=== PATIENT | female | born 1950 | race Two or more races ===

== ENCOUNTER 2019-12-15 12:45 | Inpatient (IN) | payer MEDICAID, OTHER ==
[~2019-12-15] VITALS: Ht 152.4 cm; Wt 49.0 kg
--- NOTE | 2019-12-15 13:11 | NUR ---
Fever with SOB, from SNF - staff called 911. PT NON VERBAL, EYES OPEN. PLACED ON LEARNING ENGINEER, ST. PT SEEN & EVAL'D BY DR. KUMAR. WILL CONT TO MONITOR.
[2019-12-15] MEDS ORDERED: HYDR100T27 GT (13:15)
[2019-12-15] MEDS ORDERED: GLYC2TAB21 GT (13:15)
[2019-12-15] MEDS ORDERED: AMIN30LI2 GT (13:15)
[2019-12-15] MEDS ORDERED: [UNRECOGNIZED DRUG - CODE] MC (13:15)
[2019-12-15] MEDS ORDERED: CARV6.252 GT (13:15)
[2019-12-15] MEDS ORDERED: CHLO473M3 PO (13:15)
[2019-12-15] MEDS ORDERED: ATOR40TA GT (13:15)
[2019-12-15] MEDS ORDERED: quercetin GT (13:15)
[2019-12-15] MEDS ORDERED: NA P133E RC (13:15)
[2019-12-15] MEDS ORDERED: DOCU-141 GT (13:15)
[2019-12-15] MEDS ORDERED: OMEP20TA5 GT (13:15)
[2019-12-15] MEDS ORDERED: LISI40TA4 GT (13:15)
[2019-12-15] MEDS ORDERED: DEXT15DR6 RIGHTEYE (13:15)
[2019-12-15] MEDS ORDERED: LEVE100S GT (13:15)
[2019-12-15] MEDS ORDERED: IBUP-1953 GT (13:15)
[2019-12-15] MEDS ORDERED: SACC250C GT (13:15)
[2019-12-15] MEDS ORDERED: ENOX40DI SQ (13:15)
[2019-12-15] MEDS ORDERED: MAGN24002 GT (13:15)
[2019-12-15] MEDS ORDERED: [UNRECOGNIZED DRUG - OTHER] GT (13:15)
[2019-12-15] MEDS ORDERED: JEVITY GT (13:15)
[2019-12-15] MEDS ORDERED: IPRA4AER IH (13:15)
[2019-12-15] MEDS ORDERED: MULT-594 GT (13:15)
[2019-12-15] MEDS ORDERED: CRAN3875 GT (13:16)
[2019-12-15] MEDS ORDERED: BISA10SU11 RC (13:16)
[2019-12-15] MEDS ORDERED: [UNRECOGNIZED DRUG - SUPPLY] (13:16)
[2019-12-15] MEDS ORDERED: ACET325T53 GT (13:16)
[2019-12-15] MEDS ORDERED: ACET-2605 GT (13:16)
[2019-12-15] MEDS ORDERED: ASCO-352 GT (13:17)
[2019-12-15 13:21] LABS: BASOPHILS # (AUTO) 0.1 /CMM (0.0-0.2); BASOPHILS % (AUTO) 0.7 % (0.0-2.0); EOSINOPHILS % (AUTO) 0.4 % (0.0-6.0); HEMATOCRIT 37 % (39-51); LYMPHOCYTES # (AUTO) 0.6 /CMM (0.8-4.8); LYMPHOCYTES % (AUTO) 3.7 % (20.0-44.0); MEAN CORPUSCULAR HGB CONC 33 g/dl (31.0-36.0); MEAN CORPUSCULAR VOLUME 85 fL (80-96); MONOCYTES # (AUTO) 0.2 /CMM (0.1-1.30); MONOCYTES % (AUTO) 1.2 % (2.0-12.0); NEUTROPHILS # (AUTO) 14.2 /CMM (1.8-8.9); PLATELET COUNT (AUTO) 339 /CMM (150-450); RED BLOOD CELL COUNT(AUTO) 4.28 MIL/uL (4.5-6.0); WHITE BLOOD COUNT (AUTO) 15.1 K/uL (4.3-11.0)
[2019-12-15] MEDS ORDERED: ACETAMINOPHEN 650 MG/SUPP.RECT RC ONE ×2 (13:22→13:30)
[2019-12-15 13:30] LABS: CALCIUM, SERUM 9.2 mg/dL (8.5-10.1); CREATININE 0.6 mg/dL (0.6-1.3); POTASSIUM 3.8 mmol/L (3.5-5.1)
[2019-12-15 13:36] LABS: BILIRUBIN,DIRECT 0.2 mg/dL (0.0-0.2); BILIRUBIN,TOTAL 0.5 mg/dL (0.2-1.0); TOTAL PROTEIN, SERUM 7.4 g/dL (6.4-8.2)
--- NOTE | 2019-12-15 14:00 | NUR ---
CALLED NURSING SUP FOR TELE BED.
[2019-12-15] MEDS ORDERED: PIPERACILLIN /TAZOBACTAM 3.375 G in IV D5W 50 ML IV ONE (14:30)
[2019-12-15] MEDS ORDERED: IV NS 0.9% 1,000 ML BAG IV ONE (14:30)
[2019-12-15 14:49] LABS: C-REACTIVE PROTEIN 7.2 mg/dL (0.0-0.9)
[2019-12-15] MEDS ORDERED: MAGNESIUM HYDROXIDE 30 ML UDC PO PRN (15:30)
[2019-12-15] MEDS ORDERED: MAG HYDROX/AL HYDROX/SIMETH 30 ML UDC PO PRN (15:30)
[2019-12-15] MEDS ORDERED: ONDANSETRON HCL/PF 4 MG/2 ML VIAL IVP PRN (15:30)
[2019-12-15] MEDS ORDERED: JEVITY 1.2 CAL 1,000 ML BOTTLE GT PRN (15:30)
[2019-12-15] MEDS ORDERED: Z GUARD REMEDY 2 OZ OINT TP PRN (15:30)
[2019-12-15] MEDS ORDERED: ZOLPIDEM TARTRATE 5 MG TABLET PO PRN (15:30)
[2019-12-15] MEDS ORDERED: BISACODYL SUPP (10 MG) 10 MG/SUPP.RECT SUPP.RECT RC PRN (15:30)
[2019-12-15] MEDS ORDERED: HYDROCODONE/APAP 5/325MG 1 EACH TABLET PO PRN (15:30)
[2019-12-15] MEDS ORDERED: ACETAMINOPHEN 325 MG TABLET PO PRN (15:30)
--- NOTE | 2019-12-15 15:30 | NUR ---
MEDICATED ORDERED, PT AUST[place] WELL. PT STABLE, NO RESP DISTRESS NOTED AT THIS TIME. WILL CONT TO MONITOR.
--- NOTE | 2019-12-15 16:11 | NUR ---
BED ASSIGNED: 109
[2019-12-15] MEDS ORDERED: FEE PK DOSING 1 MIN EA MC ONE (16:51)
[2019-12-15] MEDS ORDERED: CHLORHEXIDINE GLUCONATE 15 ML UDC MM SCH (17:00)
--- NOTE | 2019-12-15 17:28 | NUR ---
URINE SAMPLE COLLECTED VIA STRAIGHT CATHETER, URINE SAMPLE SENT TO LAB
--- NOTE | 2019-12-15 18:02 | NUR ---
HUNTER RN OPENING NOTES RECEIVED PT FROM ER REPORT WAS GIVEN BY MONA. ALERT AND ORIENTED X3. SPEAKS [place]. VS WNL.NO MEDS IN THE PIXEL OR CASSETE YET TALKED TO PHARMACY [facility]. WILL BRING IT. PT IS ON 4 L. OXYGEN . TRACH AND GT TUBE. NO CLARIFICATION OF HOW MANY ML/HR FOR GLUCERNA 1.2. BED IN LOWEST POSITIONM. CALL LIGHT WITHIN REACH. WILL ENDORSE TONIGHT SHIFT
[2019-12-15 18:18] LABS: BILIRUBIN,URINE Negative (NEGATIVE); BLOOD, URINE Trace-intact Ery/uL (NEGATIVE); KETONES,URINE Negative (NEGATIVE); LEUKOCYTE ESTERASE ,URINE Small (NEGATIVE); NITRITE, URINE Positive (NEGATIVE); PROTEIN,URINE 30 mg/dl (NEGATIVE); UGLUCOSE Negative (NEGATIVE); UROBILINOGEN,URINE 0.2 EU/dL (0.2)
[2019-12-15 18:19] LABS: APPEARANCE,URINE CLOUDY (CLEAR); COLOR,URINE YELLOW (YELLOW)
[2019-12-15 18:23] LABS: BACTERIA,URINE 2+ /HPF (None Seen); MUCUS,URINE Moderate /LPF (None Seen); SQUAMOUS EPITHELIAL CELL,UR Few /HPF (None Seen); WBC,URINE 21-50 /HPF (0-3)
--- NOTE | 2019-12-15 19:15 | NUR ---
HUNTER RN NOTES MEDS ARE STILL NOT IN THE PYXEL OR CASSETTE WAITING FOR PHARM TO BRING IT UP
[2019-12-15 19:45] VITALS: BP 127/84
[2019-12-15 20:00] VITALS: BP 132/81
--- NOTE | 2019-12-15 20:10 | NUR ---
RN NOTE PER MD, OKAY TO RESUME TUBE FEEDING FROM SNF. DIETARY CONSULT ORDERED.
[2019-12-15] MEDS: IV NS 0.9% 1,000 ML IV PRN (20:47)
--- NOTE | 2019-12-15 20:52 | NUR ---
RN NOTE SPOKE TO PHARMACY. OK TO GIVE OVERDUE 1700 MEDS AT THIS TIME.
[2019-12-15] MEDS: CHLORHEXIDINE GLUCONATE 15 ML UDC MM SCH (20:55)
[2019-12-15] MEDS: LEVETIRACETAM SOL (5 ML) 100 MG/ML UDC GT SCH (20:55)
[2019-12-15] MEDS: CARVEDILOL 6.25 MG TABLET GT SCH (20:56)
[2019-12-15] MEDS: PIPERACILLIN /TAZOBACTAM 4.5 G in IV D5W 50 ML IV SCH (20:57)
[2019-12-15] MEDS: JEVITY 1.2 CAL 1,000 ML BOTTLE GT PRN (21:10)
[2019-12-15] MEDS: VANCOMYCIN 1 GM in IV NS 0.9% 250 ML IV SCH (21:35)
--- NOTE | 2019-12-15 22:56 | NUR ---
RN NOTE SPOKE TO CHINTAN FROM [facility]. PER PHARMACIST, OKAY TO ADMINISTER MIDNIGHT DOSE OF ZOSYN SCHEDULED EVEN THOUGH 1ST DOSE WAS GIVEN LATE AT 2100.
[2019-12-16] VITALS (7 sets, daily range): BP systolic 109–147; BP diastolic 64–85
[2019-12-16] MEDS: PIPERACILLIN /TAZOBACTAM 4.5 G in IV D5W 50 ML IV SCH ×4 (00:21→17:27)
--- NOTE | 2019-12-16 06:28 | NUR ---
RN NOTE NO ACUTE CHANGES OBSERVED OVERNIGHT. PT CURRENTLY RUNNING TUBE FEEDING AT 50CC/HOUR AND TOLERATING WELL. WILL ENDORSE TO MORNING RN TO ADVANCE TUBE FEEDING RATE TOLERATED TO REACH GOAL OF 60CC/HOUR.
--- NOTE | 2019-12-16 08:00 | NUR ---
RN Opening Received patient in bed AO x 3, able to responds all stimuli. Does no c/o pain or discomfort, Respiratory even and unlabored with oxygen at 6LPM with T piece #7, O2sat 99%, no distress observed. Skin is warm to touch, kept clean/dry, intact IV site. Keep bed in locked with elevated head of bed for secure airway and aspiration precaution. Call light within reach, will continue to monitor.
[2019-12-16 08:07] LABS: BASOPHILS # (AUTO) 0.1 /CMM (0.0-0.2); BASOPHILS % (AUTO) 0.4 % (0.0-2.0); EOSINOPHILS % (AUTO) 1.4 % (0.0-6.0); HEMATOCRIT 30 % (33-45); HEMOGLOBIN 9.8 g/dL (11.5-14.8); LYMPHOCYTES # (AUTO) 1.1 /CMM (0.8-4.8); MEAN CORPUSCULAR HGB CONC 32 g/dl (31.0-36.0); MEAN CORPUSCULAR VOLUME 87 fL (82-100); MONOCYTES # (AUTO) 0.9 /CMM (0.1-1.30); MONOCYTES % (AUTO) 5.5 % (2.0-12.0); NEUTROPHILS # (AUTO) 13.8 /CMM (1.8-8.9); NEUTROPHILS % (AUTO) 85.7 % (43.0-81.0); PLATELET COUNT (AUTO) 260 /CMM (150-450); RED BLOOD CELL COUNT(AUTO) 3.48 MIL/uL (4.0-5.2); WHITE BLOOD COUNT (AUTO) 16.1 K/uL (4.3-11.0)
[2019-12-16] MEDS: LEVETIRACETAM SOL (5 ML) 100 MG/ML UDC GT SCH ×2 (08:41→17:26)
[2019-12-16] MEDS: DOCUSATE SODIUM LIQ 100 MG/10 ML UDC GT SCH (08:41)
[2019-12-16] MEDS: CHLORHEXIDINE GLUCONATE 15 ML UDC MM SCH ×2 (08:41→17:26)
[2019-12-16] MEDS: ASCORBIC ACID 500 MG TABLET GT SCH (08:42)
[2019-12-16] MEDS: LISINOPRIL (20MG) 20 MG TABLET GT SCH (08:42)
[2019-12-16] MEDS: ATORVASTATIN 40 MG TABLET GT SCH (08:42)
[2019-12-16] MEDS: CARVEDILOL 6.25 MG TABLET GT SCH ×2 (08:43→17:25)
[2019-12-16] MEDS: ENOXAPARIN SODIUM 40 MG/0.4 ML DISP.SYRIN SQ SCH (08:44)
[2019-12-16] MEDS: IV NS 0.9% 1,000 ML IV PRN (08:48)
[2019-12-16 09:02] LABS: CALCIUM, SERUM 8.5 mg/dL (8.5-10.1); CREATININE 0.6 mg/dL (0.6-1.3); MAGNESIUM 2.2 mg/dL (1.8-2.4); PHOSPHORUS 3.6 mg/dL (2.5-4.9); POTASSIUM 3.7 mmol/L (3.5-5.1)
[2019-12-16 10:44] LABS: THYROID STIMULATING HORMONE 0.505 uIU/mL (0.358-3.74)
[2019-12-16] MEDS: VANCOMYCIN 1 GM in IV NS 0.9% 250 ML IV SCH (11:28)
--- NOTE | 2019-12-16 18:30 | NUR ---
RN Closing note Patient in bed comfortably, does no appears pain or distress. Skin is warm to touch, kept clean/dry, intact IV site. Respiratory even and unlabored with oxygen at 6LPM with T piece, no distress observed. Keep bed in locked with elevated HOB for secure airway and aspiration precaution, call light within reach, will endorse manager night.
--- NOTE | 2019-12-16 19:45 | NUR ---
RN NOTE RECEIVED PT IN BED, APPEARS COMFORTABLE. AOX3, NO S/SX OF ACUTE DISTRESS AT THIS TIME. PATIENT'S BREATHING IS EVEN AND UNLABORED, NOTED TRACHEOSTOMY TUBE PORTAL#7 CONNECTED TO TPIECE AND OXYGEN INTACT, SATURATING 100% AT 6LPM. PATIENT ON TELE MONITOR READING SR, HR IS @85. NOTED IV SITE ON LEFT HAND G18, AND HILLARY MIDLINE G18, BOTH PATENT AND FLUSHING WELL, WITH NS RUNNING AT 75 ML/HR, NO S/S OF INFECTION OR INFILTRATION. NO SKIN ISSUES NOTED. SAFETY MEASURES HAVE BEEN PROVIDED AND IMPLEMENTED. PATIENT BED ALARM IS ON. HEAD OF BED ELEVATED. BED IS LOCKED, IN LOWEST POSITION AND SIDE RAILS UP. CALL LIGHT WITHIN REACH OF THE PATIENT. WILL CONTINUE TO MONITOR AND REASSESS FOR ANY CHANGES.
--- NOTE | 2019-12-16 20:10 | NUR ---
RN NOTE TELEPHONE CALL RECEIVED FROM YEMI HUMPHREY, PATIENT'S BROTHER, INQUIRING ON CURRENT PATIENT STATUS. PROVIDED HIM WITH OBJECTIVE INFORMATION PER CHART. ACKNWOLEDGED AND VERBALIZED UNDERSTANDING. HE SAID HE WILL CALL PERIODICALLY TO GET UPDATES REGARDING PATIENT.
--- NOTE | 2019-12-16 21:00 | NUR ---
RN NOTE NOTED MID LINE AT LUE PULLED OUT. PATIENT HAS ANOTHER IV LINE AT LEFT HAND, PATENT AND FLUSHING WELL WITH NS AT 75 ML/HR. ADVISED PATIENT TO BE CAREFUL WITH IV LINE DURING MOVEMENT. TIRE SERVICER MADE AWARE.
[2019-12-16] MEDS: ACETAMINOPHEN 650 MG/20.3 ML UDC GT PRN (21:37)
--- NOTE | 2019-12-16 21:37 | NUR ---
RN NOTE PATIENT C/O HEADACHE AT 08/07. GENTLE MASSAGE PROVIDED. PRN TYLENOL 650 MG GIVEN ORDERED. WILL CONTINUE TO MONITOR.
--- NOTE | 2019-12-16 22:26 | NUR ---
RN NOTE ENDORSED TO MALACHI BILLY FOR CONTINUATION OF CARE.
--- NOTE | 2019-12-16 22:44 | NUR ---
MASS SPECTROMETRY SPECIALIST: RECEIVED PATIENT Transferred of care, patient in bed, awake. T-Piece to O2 2L via NC, denies shortness of breath. HILLARY Midline dislodged per MARIAJOSE Mejia. Gtube at 60ml/hr, maintained upright posture. Maintained safety. Covid-19 resulted negative per MARIAJOSE Torres.
--- NOTE | 2019-12-16 23:02 | NUR ---
NAUMKEAG OPERATOR NOTES SPOKE TO EQUIPMENT INSPECTOR GISELE PANG COVID RESULT NEGATIVE ,DR HEALY ALSO MADE AWARE OF COVID RESULT NEGATIVE WITH ORDER TO TRANSFER PTS TO CLEAN UNIT.
--- NOTE | 2019-12-16 23:14 | NUR ---
CONE BAKER MACHINE NOTES SPOKE TO POLY PTS TO BE TRANSFER TO 312-1 D/T COVID NEGATIVE RESULT.
[2019-12-17] VITALS: BP 145/92
--- NOTE | 2019-12-17 00:18 | NUR ---
FINISHING TECHNICIAN: TRANSFERRED TO ROOM 312-1 Covid 19 resulted negative . Transferred patient to [facility] via bed with MARIAJOSE Wilkins. All personal belongings send with the patient. Report given to MARIAJOSE Alfaro.
--- NOTE | 2019-12-17 00:20 | NUR ---
RN NOTES: -AT 2330 RECEIVED REPORT FROM MALACHI/RN/HUNTER, PATIENT WILL BE TRANSFER TO [facility] ROOM [facility]. PATIENT IS ON T-PIECE WITH O2 AT 6L/MIN, A/OX3, ABLE TO VERBALIZED NEEDS, INCONTINENT BOTH BOWEL AND BLADDER, SKIN IS INTACT, ON PEG TUBE, WITH FEEDING OF JVT 1.2 AT 60 ML /HR X 12 HOURS, OFF AT 0900, DUE FOR ZOSYN AT 0000 AND VANCO AT 0500, IV SITE:LH G#22 WITH IVF OF NS AT 75ML/HR,FOR ST EVAL TANI. AND LABS IN THE MORNING, REMAINS AFEBRILE AND LATEST COVID TEST IS NEGATIVE. -AT 0020 PATIENT WAS TRANSFERRED, ACCOMPANIED BY 2 RN, ON CORRESPONDENCE CLERK, TELE PATIENT SINUS RHYTHM RATE-82,NO PAIN OR DISCOMFORT, NON LABORED BREATHING , ON T-PIECE WITH O2 AT 6L/MIN, SPO2-100%, HR-82, ORIENTED TO UNIT AND STAFF, SHE LOOK A BIT ANXIOUS ON THE NEW ENVIRONMENT BUT AFTER EVERYTHING WAS EXPLAINED TO HER SHE LOOKS MORE RLEAX AND SMILING BACK TO THE RN. Addendum: 12/17/19 at 0205 by MARQUES CORRAL RN ADDED NOTES: UPON TRANSFER NOTED WITH ON AND OFF COUGH.CALLED RT AND REQUEST FOR HUMIDIFIER FOR HER O2 INHALATION.SUCTION SET UP DONE.
[2019-12-17] MEDS: PIPERACILLIN /TAZOBACTAM 4.5 G in IV D5W 50 ML IV SCH ×4 (00:24→17:07)
[2019-12-17] MEDS: IV NS 0.9% 1,000 ML IV PRN ×2 (00:29→16:42)
--- NOTE | 2019-12-17 02:01 | NUR ---
RN NOTES: -NS CONSUMED AND STARTED WITH NEW BOTTLE AT 0029. -STILL AWAKE SHE IS ADJUSTING IN THE NEW SURROUNDING, PACIFY, HER BROTHER CALLED AND EXPLAINED TO HER HOW IS THE PATIENT, HER TUBING WAS REPOSITIONED BECAUSE SHE COMPLAINT OF PAIN ON THE THROAT AREA, AFTER REPOSITIONING SHE SAID SHE IS FINE, KEPT ON SEMI FOWLERS POSITION.
--- NOTE | 2019-12-17 02:51 | NUR ---
RN NOTES: PATIENT NOTED WITH ON AND OFF COUGH WITH WHITE PHLEGM, TALENT SOLUTIONS MANAGER NOTIFIED, WITH NEW ORDER:ROBITUSSIN 5ML Q 4H PRN FOR COUGH AND ALBUTEROL/ATROVENT HHN Q 4H PRN FOR COUGH, NOTED AND CARRIED OUT, RT NOTIFIED.
[2019-12-17] MEDS ORDERED: IPRATROPIUM NEB FS 0.5 MG/2.5 ML AMPUL.NEB NEB PRN (03:00)
[2019-12-17] MEDS ORDERED: ALBUTEROL FS 2.5 MG/0.5 ML VIAL.NEB NEB PRN (03:00)
[2019-12-17] MEDS ORDERED: GUAIFENESIN/CODEINE 10 ML UDC GT PRN (03:00)
[2019-12-17 03:55] VITALS: BP 129/78
[2019-12-17 04:00] VITALS: BP 129/78
[2019-12-17] MEDS: VANCOMYCIN 1 GM in IV NS 0.9% 250 ML IV SCH ×2 (04:43→22:26)
--- NOTE | 2019-12-17 06:35 | NUR ---
RN NOTES: AFTER SHE RECEIVED HAND HELD NEBULIZER SHE WAS ABLE TO REST AND SLEEP, KEPT ON SEMI FOWLERS POSITION FEEDING ONGOING OF JEVITY 1.2 AT 60ML/HRX 12 HOURS TO BE OFF AT 0900,NON LABORED BREATHING SPO2-98% HR-82 SINUS RHYTHM, NO BM, URINE 2X, LATEST BP-129/78, KEPT ON CLOSE WATCH.IVF CONTINUE NS AT 75 ML/HR, TO F/U BLOOD C/S, URINE C/S,MRSA SCREEN RESULT, FOR ST EVAL AND SWALLOW EVAL, FOR LAB TEST THIS MORNING.NO SIGN OF SOB OR RESPIRATORY DISTRESS.
--- NOTE | 2019-12-17 07:37 | NUR ---
MS/RN OPENING NOTES RECEIVED PATIENT AWAKE ON BED. ALERT AND ORIENTED X 2-3. PATIENT IN NO APPARENT RESPIRATORY DISTRESS NOTED. NO SIGN AND SYMPTOM PAIN AT THIS TIME. WILL CONTINUE TO MONITOR.
[2019-12-17 08:00] VITALS: BP 152/92
[2019-12-17] MEDS: LISINOPRIL (20MG) 20 MG TABLET GT SCH (08:35)
[2019-12-17] MEDS: ATORVASTATIN 40 MG TABLET GT SCH (08:35)
[2019-12-17] MEDS: LEVETIRACETAM SOL (5 ML) 100 MG/ML UDC GT SCH ×2 (08:35→16:33)
[2019-12-17] MEDS: CHLORHEXIDINE GLUCONATE 15 ML UDC MM SCH ×2 (08:35→16:33)
[2019-12-17] MEDS: DOCUSATE SODIUM LIQ 100 MG/10 ML UDC GT SCH (08:35)
[2019-12-17] MEDS: CARVEDILOL 6.25 MG TABLET GT SCH ×2 (08:36→16:33)
[2019-12-17] MEDS: ASCORBIC ACID 500 MG TABLET GT SCH (08:36)
[2019-12-17] MEDS: ENOXAPARIN SODIUM 40 MG/0.4 ML DISP.SYRIN SQ SCH (08:39)
[2019-12-17 09:47] LABS: BASOPHILS % (AUTO) 0.3 % (0.0-2.0); EOSINOPHILS % (AUTO) 1.4 % (0.0-6.0); HEMATOCRIT 30 % (33-45); HEMOGLOBIN 9.8 g/dL (11.5-14.8); LYMPHOCYTES # (AUTO) 1.3 /CMM (0.8-4.8); LYMPHOCYTES % (AUTO) 14.6 % (20.0-44.0); MEAN CORPUSCULAR HGB CONC 32 g/dl (31.0-36.0); MEAN CORPUSCULAR VOLUME 88 fL (82-100); MONOCYTES # (AUTO) 0.5 /CMM (0.1-1.30); MONOCYTES % (AUTO) 5.6 % (2.0-12.0); NEUTROPHILS # (AUTO) 6.9 /CMM (1.8-8.9); NEUTROPHILS % (AUTO) 78.1 % (43.0-81.0); PLATELET COUNT (AUTO) 309 /CMM (150-450); RED BLOOD CELL COUNT(AUTO) 3.47 MIL/uL (4.0-5.2); WHITE BLOOD COUNT (AUTO) 8.9 K/uL (4.3-11.0)
[2019-12-17 10:46] LABS: CALCIUM, SERUM 8.5 mg/dL (8.5-10.1); CREATININE 0.6 mg/dL (0.6-1.3); MAGNESIUM 2.1 mg/dL (1.8-2.4); PHOSPHORUS 2.7 mg/dL (2.5-4.9); POTASSIUM 3.2 mmol/L (3.5-5.1)
--- NOTE | 2019-12-17 12:13 | NUR ---
MS/RN NOTES DR. HERNÁNDEZ ORDER TO ASK LAB FOR URINE CULTURE RESULT CARLOS, PER ENGINE REPAIRER PRODUCTION NO ORDER FOR URINE CULTURE TODAY.
--- NOTE | 2019-12-17 12:36 | NUR ---
MS/RN NOTES PATIENT NOTED SIGN AND SYMPTOM OF PAIN, IRRITABILITY, GRIMACE FACE AND MOANING. NORCO 5/325MG 1TAB GIVEN VIA GT. WILL CONTINUE TO MONITOR.
[2019-12-17 16:00] VITALS: BP 126/76
--- NOTE | 2019-12-17 18:48 | NUR ---
MS/RN CLOSING NOTES PATIENT IS ON BED. ALERT AND ORIENTED X 2-3. PATIENT IN NO APPARENT RESPIRATORY DISTRESS NOTED. NO SIGN AND SYMPTOM OF PAIN NOTED. IV ACCESS AT LEFT UPPER ARM MIDLINE WITH IV FLUID OF NS 1 L AT 75 ML/HR ON AND INFUSING WELL. SEEN AND EXAMINED BY MD WITH ORDERS MADE AND CARRIED OUT. ALL DUE MEDICATION WAS GIVEN. KEEP PATIENT CLEAN, DRY AND COMFORTABLE THE WHOLE TIME. CHECKED AND TURNED PATIENT EVERY 2 HOURS. SAFETY PRECAUTION IN PLACED. BED IN LOWEST POSITION AND LOCKED. SIDE RAILS UP X2. CALL LIGHT WITHIN REACH. WILL ENDORSED TO MOBILE SALES ASSISTANT FOR WILMA.
--- NOTE | 2019-12-17 19:50 | NUR ---
MS RN OPENING NOTES PATIENT RECEIVED RESTING IN BED A/O X 2-3, ABLE TO MAKE NEEDS KNOWN. TOLERATING TRACH COLLAR WELL 8L OF O2 WITH BREATHING EVEN AND UNLABORED, NO SOB NOTED. NO SIGNS OF ACUTE DISTRESS. NO COMPLAINTS OF PAIN OR DISCOMFORT. HILLARY MIDLINE RUNNING NS @ 75 ML/HR. SAFETY PRECAUTIONS IN PLACE WITH BED IN LOWEST POSITION, CALL LIGHT WITHIN REACH, BREAKS ON, SIDE RAILS UP. WILL CONTINUE TO MONITOR THROUGHOUT THE NIGHT.
[2019-12-17 20:00] VITALS: BP 134/80
[2019-12-17] MEDS: JEVITY 1.2 CAL 1,000 ML BOTTLE GT PRN (21:00)
--- NOTE | 2019-12-17 21:07 | NUR ---
MS RN NOTES GTUBE FEEDING STARTED JEVITY 1.2 @ 60 ML/HR. WILL ENDORSE END FEEDING AT 9AM.
[2019-12-18] MEDS: PIPERACILLIN /TAZOBACTAM 4.5 G in IV D5W 50 ML IV SCH ×5 (00:02→23:28)
--- NOTE | 2019-12-18 06:51 | NUR ---
MS RN CLOSING NOTES PATIENT RECEIVED RESTING IN BED A/O X 2-3, ABLE TO MAKE NEEDS KNOWN. TOLERATING TRACH COLLAR WELL 8L OF O2 WITH BREATHING EVEN AND UNLABORED, NO SOB NOTED. NO SIGNS OF ACUTE DISTRESS. NO COMPLAINTS OF PAIN OR DISCOMFORT. HILLARY MIDLINE RUNNING NS @ 75 ML/HR. GTUBE NOTED AND RUNNING JEVITY @ 60 ML/HR- ENDING AT 0900. SAFETY PRECAUTIONS IN PLACE WITH BED IN LOWEST POSITION, CALL LIGHT WITHIN REACH, BREAKS ON, SIDE RAILS UP. ALL NEEDS ATTENDED TO. PATIENT KEPT CLEAN AND DRY. WILL ENDORSE TO ONCOMING SHIFT ABOUT WILMA.
[2019-12-18 07:13] LABS: BASOPHILS % (AUTO) 0.3 % (0.0-2.0); EOSINOPHILS % (AUTO) 1.6 % (0.0-6.0); HEMATOCRIT 31 % (33-45); LYMPHOCYTES # (AUTO) 1.7 /CMM (0.8-4.8); LYMPHOCYTES % (AUTO) 14.8 % (20.0-44.0); MEAN CORPUSCULAR HGB CONC 32 g/dl (31.0-36.0); MEAN CORPUSCULAR VOLUME 86 fL (82-100); MONOCYTES # (AUTO) 0.7 /CMM (0.1-1.30); MONOCYTES % (AUTO) 6.4 % (2.0-12.0); NEUTROPHILS # (AUTO) 8.6 /CMM (1.8-8.9); NEUTROPHILS % (AUTO) 76.9 % (43.0-81.0); PLATELET COUNT (AUTO) 328 /CMM (150-450); WHITE BLOOD COUNT (AUTO) 11.2 K/uL (4.3-11.0)
--- NOTE | 2019-12-18 07:15 | NUR ---
MS RN NOTES PATIENT RECEIVED SLEEPING IN BED COMFORTABLY. EASILY AWAKEN BY LIGHT TOUCH AND NAME. ALERT AND ORIENTED X2-3, PATIENT ABLE TO MOUTH WORDS. TRACH COLLAR IN PLACE, PATIENT TOLERATING 8L OF OXYGEN, WITH SPO2 100% WITH EVEN NON-LABORED BREATHING, AND NO SOB NOTED AT THIS TIME. PATIENT SKIN WARM AND DRY TO TOUCH. IV ACCESS INTACT ON LEFT UPPER ARM, MIDLINE, INFUSING NORMAL SALINE AT 75ml/hr. PATIENT G-TUBE FEEDING INTACT AND INFUSING JEVITY 1.2 AT 60 ml/hr, ENDORSED FROM NIGHTSHIFT TO END FEEDING AT 0900. SAFETY PRECAUTIONS IMPLEMENTED WITH BED LOCKED, BED IN THE LOWEST POSITION, BED ALARM ON, BILATERAL SIDE RAILS UP, AND CALL LIGHT WITHIN EASY REACH OF THE PATIENT. WILL CONTINUE TO MONITOR PATIENT.
[2019-12-18 07:56] LABS: CALCIUM, SERUM 8.9 mg/dL (8.5-10.1); CREATININE 0.6 mg/dL (0.6-1.3); PHOSPHORUS 2.8 mg/dL (2.5-4.9); POTASSIUM 3.1 mmol/L (3.5-5.1)
[2019-12-18 08:00] VITALS: BP_SYST 152; BP_SYST 172; BP_DIAS 92; BP_DIAS 98
[2019-12-18] MEDS: LEVETIRACETAM SOL (5 ML) 100 MG/ML UDC GT SCH ×2 (08:44→17:14)
[2019-12-18] MEDS: ATORVASTATIN 40 MG TABLET GT SCH (08:44)
[2019-12-18] MEDS: DOCUSATE SODIUM LIQ 100 MG/10 ML UDC GT SCH (08:44)
[2019-12-18] MEDS: ASCORBIC ACID 500 MG TABLET GT SCH (08:44)
[2019-12-18] MEDS: CHLORHEXIDINE GLUCONATE 15 ML UDC MM SCH ×2 (08:44→17:14)
[2019-12-18] MEDS: LISINOPRIL (20MG) 20 MG TABLET GT SCH (08:45)
[2019-12-18] MEDS: CARVEDILOL 6.25 MG TABLET GT SCH ×2 (08:45→17:22)
[2019-12-18] MEDS: ENOXAPARIN SODIUM 40 MG/0.4 ML DISP.SYRIN SQ SCH (08:46)
--- NOTE | 2019-12-18 10:25 | NUR ---
MS RN NOTES PATIENT SEEN BY SPEECH THERAPIST FOR SWALLOW EVALUATION, PER JARROD, WILL FOLLOW UP TOMORROW, DUE TO PATIENT HAVING SECRETIONS AND PREVIOUS EPISODE OF EMESIS. SPEECH THERAPIST RECOMMENDED HEAD OF THE ELEVATED AT ALL TIME. WILL CONTINUE TO MONITOR PATIENT.
[2019-12-18] MEDS: IV NS 0.9% 1,000 ML IV PRN (11:08)
[2019-12-18] MEDS: POTASSIUM CHLORIDE 20 MEQ POWDER PACKET GT SCH ×3 (11:56→14:22)
[2019-12-18] MEDS: VANCOMYCIN 1 GM in IV NS 0.9% 250 ML IV SCH (14:22)
[2019-12-18 16:01] VITALS: BP 152/96
--- NOTE | 2019-12-18 18:41 | NUR ---
MS RN NOTES PATIENT IN BED RESTING COMFORTABLY. ALERT AND ORIENTED X2-3, PATIENT ABLE TO MOUTH WORDS. TRACH COLLAR IN PLACE, PATIENT TOLERATING 8L OF OXYGEN, WITH SPO2 100% WITH EVEN NON-LABORED BREATHING, AND NO SOB NOTED AT THIS TIME. PATIENT SKIN KEPT CLEAN, WARM AND DRY TO TOUCH. IV ACCESS INTACT ON LEFT UPPER ARM, MIDLINE, INFUSING NORMAL SALINE AT 75ml/hr. PATIENT G-TUBE FEEDING INTACT AND JEVITY 1.2 AT 60 ml/hr, WILL ENDORSE TO NIGHTSHIFT TO START FEEDING AT 2100. SAFETY PRECAUTIONS IMPLEMENTED WITH BED LOCKED, BED IN THE LOWEST POSITION, BED ALARM ON, BILATERAL SIDE RAILS UP, AND CALL LIGHT WITHIN EASY REACH OF THE PATIENT. WILL ENDORSE PLAN OF CARE TO UPCOMING NURSE.
[2019-12-18 20:00] VITALS: BP 153/77
--- NOTE | 2019-12-18 20:09 | NUR ---
MS RN OPENING NOTES PATIENT RECEIVED RESTING IN BED A/O X 2-3 ABLE TO MOUTH WORDS AND MAKE NEEDS KNOWN. ON TRACH COLLAR 8L OF O2 WITH BREATHING EVEN AND UNLABORED, NO SOB NOTED. NO SIGNS OF ACUTE DISTRESS. NO COMPLAINTS OF PAIN OR DISCOMFORT AT THE MOMENT. HILLARY MIDLINE NS @ 76 ML/HR. SAFETY PRECAUTIONS IN PLACE WITH BED IN LOWEST POSITION, CALL LIGHT WITHIN REACH, BREAKS ON, SIDE RAILS UP. WILL CONTINUE TO MONITOR THROUGHOUT THE NIGHT.
[2019-12-18] MEDS: JEVITY 1.2 CAL 1,000 ML BOTTLE GT PRN (20:54)
--- NOTE | 2019-12-18 21:00 | NUR ---
MS RN NOTES GTUBE FEEDING STARTED JEVITY 1.2 @ 60 ML/HR. WILL ENDORSE TO END FEEDING AT 9AM.
[2019-12-19] MEDS: VANCOMYCIN 1 GM in IV NS 0.9% 250 ML IV SCH ×2 (02:00→15:02)
[2019-12-19] MEDS: IV NS 0.9% 1,000 ML IV PRN (04:44)
[2019-12-19] MEDS: PIPERACILLIN /TAZOBACTAM 4.5 G in IV D5W 50 ML IV SCH ×2 (05:54→12:11)
--- NOTE | 2019-12-19 07:38 | NUR ---
MS RN CLOSING NOTES PATIENT RESTING IN BED A/O X 2-3 ABLE TO MOUTH WORDS AND MAKE NEEDS KNOWN. ON TRACH COLLAR 8L OF O2 WITH BREATHING EVEN AND UNLABORED, NO SOB NOTED. NO SIGNS OF ACUTE DISTRESS. NO COMPLAINTS OF PAIN OR DISCOMFORT AT THE MOMENT. HILLARY MIDLINE NS @ 76 ML/HR. SAFETY PRECAUTIONS IN PLACE WITH BED IN LOWEST POSITION, CALL LIGHT WITHIN REACH, BREAKS ON, SIDE RAILS UP. ALL NEEDS ATTENDED TO. WILL ENDORSE TO ONCOMING SHIFT ABOUT WILMA.
[2019-12-19 07:58] LABS: BASOPHILS % (AUTO) 0.4 % (0.0-2.0); HEMATOCRIT 31 % (33-45); HEMOGLOBIN 10.2 g/dL (11.5-14.8); LYMPHOCYTES # (AUTO) 0.8 /CMM (0.8-4.8); LYMPHOCYTES % (AUTO) 7.6 % (20.0-44.0); MEAN CORPUSCULAR HGB CONC 33 g/dl (31.0-36.0); MEAN CORPUSCULAR VOLUME 85 fL (82-100); MONOCYTES # (AUTO) 0.8 /CMM (0.1-1.30); MONOCYTES % (AUTO) 7.7 % (2.0-12.0); NEUTROPHILS % (AUTO) 83.3 % (43.0-81.0); PLATELET COUNT (AUTO) 289 /CMM (150-450); RED BLOOD CELL COUNT(AUTO) 3.64 MIL/uL (4.0-5.2); WHITE BLOOD COUNT (AUTO) 10.8 K/uL (4.3-11.0)
[2019-12-19 08:00] VITALS: BP 160/100
--- NOTE | 2019-12-19 08:00 | NUR ---
RN OPENING NOTE Patient is resting in bed, A/O x2, showing no signs of acute distress or SOB, t-piece present on 8L O2, saturating 100%. HILLARY Midline noted running NS @ 75 mls/hour. g-tube feeding running Jevity 1.2 @ 60mls/hours will shut off at 0900 as ordered. Bed is in lowest position, side rails x3 in upright position, call light is within reach, fall safety and aspiration precautions enforced. Will continue with plan of care.
[2019-12-19 08:41] LABS: CALCIUM, SERUM 8.6 mg/dL (8.5-10.1); CREATININE 0.6 mg/dL (0.6-1.3); POTASSIUM 2.9 mmol/L (3.5-5.1)
[2019-12-19] MEDS: CHLORHEXIDINE GLUCONATE 15 ML UDC MM SCH (08:55)
[2019-12-19] MEDS: LISINOPRIL (20MG) 20 MG TABLET GT SCH (08:55)
[2019-12-19] MEDS: ASCORBIC ACID 500 MG TABLET GT SCH (08:55)
[2019-12-19] MEDS: LEVETIRACETAM SOL (5 ML) 100 MG/ML UDC GT SCH (08:55)
[2019-12-19] MEDS: DOCUSATE SODIUM LIQ 100 MG/10 ML UDC GT SCH (08:55)
[2019-12-19] MEDS: ATORVASTATIN 40 MG TABLET GT SCH (08:56)
[2019-12-19] MEDS: CARVEDILOL 6.25 MG TABLET GT SCH (08:56)
[2019-12-19 09:00] VITALS: BP 145/92
[2019-12-19] MEDS: ENOXAPARIN SODIUM 40 MG/0.4 ML DISP.SYRIN SQ SCH (09:07)
[2019-12-19] MEDS: POTASSIUM CHLORIDE 20 MEQ POWDER PACKET GT SCH ×3 (09:17→12:11)
[2019-12-19] MEDS: ACETAMINOPHEN 650 MG/20.3 ML UDC GT PRN (09:17)
--- NOTE | 2019-12-19 09:30 | NUR ---
RN NOTE Patient has temp of 99.0F, Tylenol given and cooling measures implemented. Will continue to monitor. Speech therapy also at bedside performing swallow evaluation.
[2019-12-19] MEDS ORDERED: JEVITY 1.2 CAL 1,000 ML BOTTLE GT PRN (09:36)
[2019-12-19 15:50] VITALS: BP 129/100
--- NOTE | 2019-12-19 16:00 | NUR ---
FOOD SERVICE CLERK NOTE Patient is medically cleared for discharge. Patient is A/O x2-3, showing no signs of acute distress or SOB, t-piece in place on 8L o2, saturating 100%. HILLARY picc line in place and will go with the patient. ID band removed, skin assessed and skin remains intact. DC instructions provided and patient verbalized understanding, signed DC paperwork. All belongings are with the patient. Family is aware of discharge to [facility]. Report given to Kristin BILLY. All patient needs met, all due medications given, patient kept clean and dry throughout shift. Patient left with EMS en route to [facility]. Charge nurse and MD aware.
== END 2019-12-19 16:20 | DRG 720 ==
LOC: EDSEX 12:53 → ER 12:53 → TELE1 16:36 → TELE 12-16 00:14 → MED 12-17 08:16
PROC: 05H933Z Insertion of Infusion Device into Right Brachial Vein, Percutaneous Approach (ICD-10-PCS; principal; 2019-12-16)
DX: A41.9 Sepsis, unspecified organism (principal); N39.0 Urinary tract infection, site not specified; J96.11 Chronic respiratory failure with hypoxia; I10 Essential (primary) hypertension; E78.5 Hyperlipidemia, unspecified; K59.00 Constipation, unspecified; R13.10 Dysphagia, unspecified; Z79.899 Other long term (current) drug therapy; G40.909 Epilepsy, unspecified, not intractable, without status epilepticus; G81.94 Hemiplegia, unspecified affecting left nondominant side; Z93.1 Gastrostomy status; Z93.0 Tracheostomy status; D64.9 Anemia, unspecified; E44.1 Mild protein-calorie malnutrition; F43.22 Adjustment disorder with anxiety; Z98.890 Other specified postprocedural states; Z79.51 Long term (current) use of inhaled steroids; R49.0 Dysphonia; B96.5 Pseudomonas (aeruginosa) (mallei) (pseudomallei) as the cause of diseases classified elsewhere; Z85.3 Personal history of malignant neoplasm of breast; Z90.11 Acquired absence of right breast and nipple; Z99.81 Dependence on supplemental oxygen
CPT/HCPCS: 31720; 36415; 71045-TC; 80048-TC; 80061-TC; 80076-TC; 80202-TC; 81000-TC; 82728-TC; 83605-TC; 83615-TC; 83735-TC; 84100-TC; 84443-TC; 84484-TC; 85025-TC; 85730-TC; 86140-TC; 87040-TC; 87081-TC; 87086-TC; 87186-TC; 92611-TC; 94640-TC; 94664-TC; 94760-TC; 94762-TC; 94799-TC; 97112-TC; 97530-TC; A4623; G0378; J1650; J1953; J2543; J3370; J7030; J7050; J7060; U0003-CS